=== PATIENT | male | born 1990 | race American Indian/Alaskan Native ===

== ENCOUNTER 2017-01-23 23:49 | Emergency (ER) | payer BC ==
[2017-01-24] MEDS ORDERED: REGLAN ONE (01:21)
[2017-01-24] MEDS ORDERED: BENADRYL ONE (01:22)
[2017-01-24] MEDS ORDERED: BENADRYL IV ONE ×2 (01:39→08:51)
[2017-01-24] MEDS ORDERED: REGLAN IV ONE ×2 (01:39→08:51)
[2017-01-24 02:06] LABS: Basophils % (Auto) 0.4 % (0.0-1.8); Eosinophils % (Auto) 1.5 % (0.0-4.3); Hematocrit 47.8 % (35.5-45.6); Hemoglobin 15.9 gm/dl (11.8-15.2); Mean Corpuscular HGB Conc 33 % (32-34); Mean Corpuscular Hemoglobin 31 pg (28-32); Mean Corpuscular Volume 93 fl (84-94); Platelet Count 189 K/mm3 (140-440); Red Blood Count 5.17 M/mm3 (3.65-5.03); Red Cell Distribution Width 13.8 % (13.2-15.2); White Blood Count 4.5 K/mm3 (4.5-11.0)
--- NOTE | 2017-01-24 02:10 | Cat Scan Report ---
FINAL REPORT EXAM: CT HEAD/BRAIN WO CON HISTORY: headache x 5 days, blurry vision OD, COMPARISON: None available. TECHNIQUE: Axial images obtained skull base through vertex. FINDINGS: No acute intracranial hemorrhage, midline shift or pathologic extra axial fluid collection. Ventricles and cisterns are normal in size and configuration for the patient's age. Romero-white differentiation preserved. Calvarium grossly intact. Orbits are grossly unremarkable. Mild mucosal thickening in the right frontal sinus. Mastoid air cells are clear. IMPRESSION: No grossly acute intracranial abnormality.
[2017-01-24 02:43] LABS: Anion Gap 20 mmol/L; Blood Urea Nitrogen 10 mg/dL (9-20); Calcium 9.4 mg/dL (8.4-10.2); Carbon Dioxide 24 mmol/L (22-30); Chloride 102.8 mmol/L (98-107); Glucose 101 mg/dL (75-100); Sodium 143 mmol/L (137-145)
[2017-01-24 03:03] LABS: Erythrocyte Sedimentation Rate 1 mm/Hr (0-20)
[2017-01-24 08:25] VITALS: BP 139/77
[2017-01-24] MEDS ORDERED: NACL 0.9% 1000 ML 1,000 ML IV ONE (08:51)
[2017-01-24] MEDS ORDERED: TORADOL IV ONE (08:51)
[2017-01-24] MEDS ORDERED: DECADRON IV ONE (08:51)
--- NOTE | 2017-01-24 09:46 | Emergency Department Report ---
ED Headache HPI - General Chief Complaint: Headache Stated Complaint: HEADACE ON RT SIDE OF HEAD Time Seen by Provider: 01/24/17 08:49 Source: patient, RN notes reviewed - History of Present Illness Initial Comments: recurrent right sided headache x 5 days hx of same, there is no n/v no fever no neck pain pain is exacerbated by light pain is relieved by nothing , pt has attempt otc tylenol po tid for pain with no improvement Quality: constant Head Injury Location: parietal Recent Head Trauma: no recent headache/trauma Associated Symptoms: vision changes (blurred vison ). denies: confusion, fatigue, facial pain, fever/chills, flushing, loss of consciousness, nausea/ vomiting, nasal congestion, nasal drainage, numbness in legs/feet, rash, sinus infection, stiff neck, weakness Allergies/Adverse Reactions: Allergies No Known Allergies Allergy (Verified 01/24/17 01:34) Home Medications: Ambulatory Orders Metoclopramide [Reglan] 10 mg PO TID PRN #30 tab 01/24/17 diphenhydrAMINE [Benadryl CAP] 25 mg PO Q8HR PRN #30 capsule 01/24/17 traMADol [Ultram] 50 mg PO Q6HR PRN #20 tablet 01/24/17 ED Review of Systems ROS: Stated complaint: HEADACE ON RT SIDE OF HEAD Other details as noted in HPI Constitutional: denies: chills, fever Eyes: denies: eye pain, eye discharge, vision change ENT: denies: ear pain, throat pain Respiratory: denies: cough, shortness of breath, wheezing Cardiovascular: denies: chest pain, palpitations Endocrine: no symptoms reported Gastrointestinal: denies: abdominal pain, nausea, diarrhea Musculoskeletal: denies: back pain, joint swelling, arthralgia Skin: denies: rash, lesions Neurological: headache (7/10 right parietal , recurrening x 5 days ). denies: weakness, paresthesias Psychiatric: denies: anxiety, depression Hematological/Lymphatic: denies: easy bleeding, easy bruising ED Past Medical Hx - Past Medical History Previous Medical History?: No - Surgical History Past Surgical History?: No - Social History Smoking Status: Never Smoker Substance Use Type: None - Medications Home Medications: Home Medications Medication Instructions Recorded Confirmed Last Taken Type Metoclopramide [Reglan] 10 mg PO TID PRN #30 tab 01/24/17 Unknown Rx diphenhydrAMINE [Benadryl CAP] 25 mg PO Q8HR PRN #30 capsule 01/24/17 Unknown Rx traMADol [Ultram] 50 mg PO Q6HR PRN #20 tablet 01/24/17 Unknown Rx ED Physical Exam - General Limitations: No Limitations General appearance: alert, in no apparent distress - Head Head exam: Present: atraumatic, normocephalic. Absent: normal inspection - Eye Eye exam: Present: PERRL, EOMI. Absent: scleral icterus, conjunctival injection , nystagmus, periorbital swelling, periorbital tenderness Pupils: Present: normal accommodation - Expanded Eye Exam Expanded Eyelids: Normal Inspection: Right Pupils: Regular, Round: Bilateral, Reactive: Bilateral Sclera/Conjunctival: Injection: Right Anterior chamber: Normal Inspection: Bilateral Posterior chamber: Deferred: Bilateral Visual acuity (R) = 20/: 20 Visual acuity (L) = 20/: 20 With correction: No IOP (R) in mmH IOP (L) in mmH IOP measured with: Tonopen - ENT ENT exam: Present: mucous membranes moist - Neck Neck exam: Present: normal inspection, full ROM. Absent: tenderness, lymphadenopathy, thyromegaly - Respiratory Respiratory exam: Present: normal lung sounds bilaterally. Absent: respiratory distress, wheezes, stridor - Cardiovascular Cardiovascular Exam: Present: regular rate, normal rhythm. Absent: systolic murmur, diastolic murmur, rubs, gallop - GI/Abdominal GI/Abdominal exam: Present: soft, normal bowel sounds - Rectal Rectal exam: Present: deferred - Extremities Exam Extremities exam: Present: normal inspection, full ROM, normal capillary refill. Absent: tenderness, pedal edema, joint swelling, calf tenderness - Back Exam Back exam: Present: normal inspection, full ROM. Absent: tenderness, CVA tenderness (R), CVA tenderness (L), muscle spasm, paraspinal tenderness, vertebral tenderness, rash noted - Neurological Exam Neurological exam: Present: alert, oriented X3, CN II-XII intact, normal gait, reflexes normal. Absent: motor sensory deficit - Expanded Neurological Exam Expanded Patient oriented to: Present: person, place, time Speech: Present: fluid speech Cranial nerves: EOM's Intact: Normal, Gag Reflex: Normal, Facial Sensation: Normal Cerebellar function: Finger to Nose: Normal, Heel to [place]: Normal, Romberg: Normal Sensory exam: Upper Extremity Light Touch: Normal, Upper Extremity Pin Prick: Normal, Upper Extremity Temperature: Normal, UE 2 Point Discrimination: Normal, Lower Extremity Light Touch: Normal, Lower Extremity Pin Prick: Normal, Lower Extremity Temperature: Normal, LE 2 Point Discrimination: Normal Motor strength exam: RUE: 5, LUE: 5, RLE: 5, LLE: 5 DTR: bicep (R): 2+, bicep (L): 2+, tricep (R): 2+, tricep (L): 2+, knee (R): 2+ , knee (L): 2+, ankle (R): 2+, ankle (L): 2+ Best Eye Response ([place]): (4) open spontaneously Best Motor Response ([place]ish[place]): (6) obeys commands Best Verbal Response (Nishant): (5) oriented [place] Total: 15 - Psychiatric Psychiatric exam: Present: normal affect - Skin Skin exam: Present: warm, dry. Absent: rash ED Course Vital Signs 01/24/17 01/24/17 01/24/17 01:01 08:10 08:15 Temperature 98.5 F 98.9 F 98.9 F Pulse Rate 58 L 64 68 Respiratory 18 16 16 Rate Blood Pressure 132/87 Blood Pressure 132/83 [Right] O2 Sat by Pulse 99 100 100 Oximetry 01/24/17 08:24 Temperature 98.5 F Pulse Rate 59 L Respiratory 16 Rate Blood Pressure Blood Pressure 139/77 [Right] O2 Sat by Pulse 99 Oximetry ED Medical Decision Making - Lab Data Result diagrams: 01/24/17 01:31 01/24/17 01:31 - Radiology Data Radiology results: report reviewed normal ct head - Medical Decision Making this is a 27 y/o aam who presents for headache right side parietal x 5 days headache described as sharp pressure radiating to right eye, with mild blurred vision exam: perrla eomi mild conjunctivae erythema no exudate no [place] no papuloedema, visual acuity 20/20 bilat , iop: 14 mmg/hg bilat, no neuro deficites x headache cn II-XII grossly intact ,pt pain relieved with decadron, benadryl, reglan, ketorolac will dc to home with same, pt will follow up neurology as scheduled next week. pt is currently a/o x 3, ambulatory gait steady denies headache at this time, headache pain 0/10 at this time. Critical care attestation.: If time is entered above; I have spent that time in minutes in the direct care of this critically ill patient, excluding procedure time. ED Disposition Clinical Impression: Cluster headache Qualifiers: Headache chronicity pattern: unspecified pattern Intractability: intractable Qualified Code(s): G44.001 - Cluster headache syndrome, unspecified, intractable Disposition: DC-01 TO HOME OR SELFCARE Is pt being admited?: No Does the pt Need Aspirin: No Condition: Good Instructions: Cluster Headache (ED) Additional Instructions: follow up with neurology as scheduled Dr. Reyes [phone] Prescriptions: diphenhydrAMINE [Benadryl CAP] 25 mg PO Q8HR PRN #30 capsule PRN Reason: headache Metoclopramide [Reglan] 10 mg PO TID PRN #30 tab PRN Reason: Headache traMADol [Ultram] 50 mg PO Q6HR PRN #20 tablet PRN Reason: Pain Referrals: PRIMARY CARE, [Primary Care Provider] - 3-5 Days Forms: Work/School Release Form(ED) Time of Disposition: 09:59
== END 2017-01-24 10:09 | disposition home or self-care (01) ==
LOC: ED 23:49
DX: G44.009 Cluster headache syndrome, unspecified, not intractable (principal)
CPT/HCPCS: 36415; 70450; 80048; 85025; 85652; 86140; 96361; 96374; 96375; 96376; 99284; J1100; J1200; J1885; J2765; J7030